=== PATIENT | male | born 1950 | race Caucasian/White ===

== ENCOUNTER → 2018-08-10 10:02 | Outpatient (CLI) | payer OTHER, MEDICARE, SELFPAY ==
--- NOTE | 2018-08-10 | DI.RAD.S_ITS ---
PROCEDURE: FL GUIDED PICC PLACEMENT INDICATIONS: TUBULO-INTERSTITIAL NEPHRITIS COMPARISON: None. FINDINGS: PICC was placed by the intravenous therapy team from the left side. Fluoroscopic spot film demonstrates tip of PICC in the SVC. IMPRESSION: Tip of PICC lies within the SVC. Dictated by: Juan Cronin M.D. on 08/10/2018 at 12:26 Approved by: Juan Cronin M.D. on 08/10/2018 at 12:27
== END ==
PROVIDERS: PCP Internal Medicine; Visit Provider Internal Medicine
DX: Z45.2 Encounter for adjustment and management of vascular access device (principal); N12 Tubulo-interstitial nephritis, not specified as acute or chronic
CPT/HCPCS: 36573

== ENCOUNTER → 2022-07-12 12:38 | Outpatient (CLI) | payer MEDICARE, OTHER, SELFPAY ==
--- NOTE | 2022-07-12 12:46 | DI.RAD.S_ITS ---
PROCEDURE: FL BARIUM SWALLOW INDICATIONS: OTHER DYSPHAGIA COMPARISON: None. FINDINGS: Function: There is weekend esophageal peristalsis, resulting in tertiary contractions and stasis of contrast. No elicited gastroesophageal reflux. The barium tablet did not pass through the GE junction. Morphology: Air-contrast images demonstrate normal mucosal morphology. Single contrast views show no esophageal strictures, extrinsic mass effects, or diverticula. Limited images of the stomach demonstrate normal appearance. IMPRESSION: Moderate esophageal dysmotility, with tertiary contractions. Dictated by: Chris Corona M.D. on 07/12/2022 at 16:23 Approved by: Chris Corona M.D. on 07/12/2022 at 16:24
== END ==
PROVIDERS: PCP Student in an Organized Health Care Education/Training Program; Referring Provider Student in an Organized Health Care Education/Training Program; Visit Provider Student in an Organized Health Care Education/Training Program
DX: R13.19 Other dysphagia (principal); K22.4 Dyskinesia of esophagus; R63.4 Abnormal weight loss; E11.42 Type 2 diabetes mellitus with diabetic polyneuropathy; D72.829 Elevated white blood cell count, unspecified; M48.02 Spinal stenosis, cervical region
CPT/HCPCS: 74220

== ENCOUNTER 2024-04-04 14:23 | Inpatient (IN) | payer MEDICARE, OTHER, SELFPAY ==
[2024-04-04] VITALS (26 sets, daily range): BP systolic 151–201; BP diastolic 61–140; PULSE 80–111; RESP 14–30; TEMP 36.1–36.7; O2SAT 94–99; BMI 19.7
--- NOTE | 2024-04-04 14:37 | DI.CT.S_ITS ---
PROCEDURE: CT STROKE INDICATIONS: code stroke TECHNIQUE: Noncontrast 4.5 mm thick angled axial sections acquired from the foramen magnum to the vertex, with coronal reformats. For radiation dose reduction, the following was used: automated exposure control, adjustment of mA and/or kV according to patient size. COMPARISON: None. FINDINGS: Image quality: Diagnostic. CSF spaces: Basal cisterns are patent. No extra-axial fluid collections. The ventricles are symmetric in size and shape. Brain: No intracranial bleeds or masses. There is cerebral volume loss for age, with resultant ventricular and sulcal prominence. There are moderate to severe periventricular and deep white matter chronic small vessel ischemic changes. There is intracranial internal carotid artery atherosclerosis. Skull and face: Calvarium and visualized facial bones appear intact, without suspicious lesions. Sinuses: Visualized sinuses and mastoids are clear. IMPRESSION: No acute intracranial pathology. Comment: Findings were discussed with Dr. Chacon on 04/04/2024 at 1454 hours This study fulfills neurological imaging criteria for inclusion or exclusion of acute stroke therapies based on available published neurological guidelines. Dictated by: Kiran Velez M.D. on 04/04/2024 at 14:52 Approved by: Kiran Velez M.D. on 04/04/2024 at 14:55
--- NOTE | 2024-04-04 14:37 | DI.CT.S_ITS ---
PROCEDURE: CT ANGIO HEAD AND NECK INDICATIONS: code stroke TECHNIQUE: After the administration of intravenous contrast, 1 mm thick sections acquired from the aortic arch through the [place] of [place]. 3-dimensional ezpigxm-inlnfhfzi-huissnkywd (MIP) and/or volume rendering reformats were acquired of the central intracranial vasculature and neck separately. For radiation dose reduction, the following was used: automated exposure control, adjustment of mA and/or kV according to patient size. COMPARISON: [facility], CT, CT STROKE, 04/04/2024, 14:42. FINDINGS: Image quality: Diagnostic. BRAIN: CSF spaces: Ventricles are normal in size and shape. Basal cisterns are patent. No extra-axial fluid collections. Brain: No significant abnormality of the brain can be seen. Skull and face: Calvarium and facial bones appear intact, without suspicious lesions. Orbits appear normal. Sinuses: Sinuses and mastoids are clear. HEAD CT ANGIOGRAPHY: Anterior circulation: Intracranial internal carotid arteries are normal in size and flow. The flow within the paired anterior cerebral arteries is normal and symmetric. The flow within the middle cerebral arteries is normal and symmetric. The anterior communicating artery is seen. No aneurysms are seen. Posterior circulation: Visualized portions of the vertebral arteries demonstrate normal caliber, and join to form a normal appearing basilar artery. Flow within the posterior cerebral arteries is normal and symmetric. No aneurysms are seen. NECK CT ANGIOGRAPHY: Carotid system: The great vessels demonstrate a conventional anatomy as they arise from the aortic arch. The origins of the common carotid arteries appear patent. The common carotid arteries demonstrate normal caliber and courses. The bifurcation regions are both widely patent. The internal carotid arteries demonstrate mild bilateral less than 50% proximal internal carotid artery stenosis. Posterior circulation: The origins of the vertebral arteries both appear widely patent. The more superior extracranial portions of both vertebral arteries also demonstrate normal courses and calibers. They join to form a normal appearing basilar artery. Soft tissues: Visualized neck soft tissues demonstrate no suspicious abnormalities. Bones: No suspicious bony lesions. Visualized cervical spine appears normally aligned. Previous multilevel cervical laminectomy and posterior lateral jenn and pedicle screw fixation. IMPRESSION: No significant intracranial arterial abnormality is seen. Mild bilateral, less than 50% internal carotid artery stenosis. Any quantitative measurements of stenosis were performed using NASCET criteria. Dictated by: Kiran Velez M.D. on 04/04/2024 at 15:59 Approved by: Kiran Velez M.D. on 04/04/2024 at 16:02
--- NOTE | 2024-04-04 14:43 | ED_ITS ---
HPI - Neuro Symptoms/Deficit General Chief Complaint: Neuro Symptoms/Deficit Stated Complaint: PER might be having a stroke unsure Time Seen by Provider: 04/04/24 14:40 Source: patient, RN notes reviewed and old records reviewed Mode of arrival: Ambulatory Limitations: no limitations History of Present Illness HPI Narrative: 73-year-old male history of seizure disorder chronic urinary retention, diabetes, dyslipidemia Keppra 250 mg p.o. b.i.d. who presents with complaint of sudden alteration in mental status. Patient has been at the urologist had his catheter removed to get good urine sample he has had it in place for 2 aunts. states they did not have him urinate before he left but did give a urinary straight cath to use if he was not able to urinate. 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 No fevers no chest pain no shortness of breath no nausea or vomiting no loss of bowel or bladder control. She describes that he was able to ambulate but seemed to drift a little bit off to the side. Patient when he had his seizures would sort of flail around and then becomes sort of comatose she states it took about 3 days to be diagnosed with seizures in the they get treated him with anti seizure medication and he improved within 12-24 hours. He is currently on fluconazole, tamsulosin, metformin, allopurinol, atorvastatin and Keppra daily as well as an aspirin 81 mg. He has not allergy to topical medications. Tobacco, alcohol or recreational drugs. On Anticoagulants: No Related Data Home Medications Medication Instructions Recorded Confirmed allopurinol 300 mg tablet 300 mg PO DAILY 05/30/19 05/30/19 aspirin 81 mg tablet,delayed 81 mg PO DAILY 05/30/19 05/30/19 release (Adult Low Dose Aspirin) famotidine 20 mg tablet 20 mg PO DAILY 05/30/19 05/30/19 finasteride 5 mg tablet 5 mg PO DAILY 05/30/19 05/30/19 losartan 100 mg tablet 100 mg PO DAILY 05/30/19 05/30/19 metformin 1,000 mg tablet 1,000 mg PO DAILY 05/30/19 05/30/19 multivitamin 1 cap PO DAILY 05/30/19 05/30/19 simvastatin 20 mg tablet 20 mg PO DAILY 05/30/19 05/30/19 tamsulosin 0.4 mg capsule 0.4 mg PO DAILY 05/30/19 05/30/19 Allergies Allergy/AdvReac Type Severity Reaction Status Date / Time aloe vera Allergy rash Verified 04/04/24 14:41 bacitracin Allergy rash Verified 04/04/24 14:41 hydrocortisone Allergy rash Verified 04/04/24 14:41 neomycin Allergy Verified 04/04/24 14:41 Review of Systems Review of Systems ROS Unobtainable: All systems reviewed & are unremarkable except as noted in HPI and below Hematologic/Lymphatic On Anticoagulants: No Patient History Family History Family/Other Hypertension Heart disease Father Hypertension Heart disease Mother Dementia Family/Other Loud snoring Hypertension Heart disease Social History Smoking Status: Former smoker Smoking Status: Former smoker Exam Narrative Exam Narrative: GEN: well nourished, well appearing male, alert, oriented to self, patient appears to be in moderate distress. Patient does not follow commands well. HEENT: Atraumatic, pupils are equal round reactive to light, extraocular movements are intact, nares are clear, TMs are clear with no fluid, there is no conjunctival pallor. Throat is clear without any exudates, erythema, tonsillar enlargement or uvular deviation, no facial droop HEART: Regular rate and rhythm without murmur, clicks, rubs. Pulses are equal in upper and lower extremities LUNGS:Lungs clear to auscultation, no wheezes, rales, crackles, chest moves symmetrically ABD:bowel sounds normal, soft, non-tender, no guarding, rebound, rigidity, no masses noted, no hepatosplenomegaly :No CVA tenderness MSCL: Non-tender, no muscle atrophy, muscles strength 5/5 upper and lower extremities, full range of motion. NEURO:CN 2-12 intact, sensation normal, finger nose finger test normal, heel da silva test normal. Initial Vital Signs Initial Vital Signs: Vital Signs Temperature 98.1 F 04/04/24 14:25 Pulse Rate 98 H 04/04/24 14:25 Respiratory Rate 18 04/04/24 14:25 Blood Pressure 172/84 H 04/04/24 14:25 Pulse Oximetry 99 04/04/24 14:25 Oxygen Delivery Method Room Air 04/04/24 14:25 Scores NIH Stroke Scale Level of Conciousness: Alert, keenly responsive Ask month/age: Answers both questions correctly. Open/close eyes, close hand: Performs one task correctly Best gaze horizontal: Normal Visual nguyễn: No visual loss Facial palsy: Normal symetrical movement Left arm drift: No drift for full 10 sec Right arm drift: No drift for full 10 sec Left leg drift: No drift for full 5 sec Right leg drift: No drift for full 5 sec Limb ataxia: Absent Sensory on face/arms/legs: Normal, no sensory loss Best language: Severe aphasia, not much is understood, fragmented Dysarthria: Normal Extinction or inattention: No abnormality Total NIH Stroke scale score: 3 Course Orders Ordered: ED Orders 04/04/24 14:30 Ammonia (NH3) Stat 04/04/24 14:36 CMP [Comprehensive Metabolic Panel] Stat Complete Blood Count AUTO DIFF Stat Ethanol (ETOH) Stat PTT Partial Thromboplastin Brayan Stat Prothrombin Time INR Stat 04/04/24 14:[address] angio head and neck Stat EKG-12 Lead Stat 04/04/24 15:00 UA Complete [Urinalysis and Microscopic] Stat Urine Culture Stat Urine Drug Screen, Rapid Stat 04/04/24 15:05 COVID19 -Nasal RAPID Stat 04/04/24 16:23 MR head/brain wo con Stat 04/04/24 18:45 Prolactin Stat Discontinued Medications Aspirin (Aspirin 81 Mg Chew Tab) 324 mg PO NOW ONE Stop: 04/04/24 17:48 Last Admin: 04/04/24 17:58 Dose: 324 mg Documented By: YI Levetiracetam 1,000 mg/ Sodium (Chloride) 110 mls @ 440 mls/hr IV NOW ONE Stop: 04/04/24 15:20 Last Infusion: 04/04/24 16:35 Dose: Infused Documented By: Admin: 04/04/24 16:15 Dose: 440 mls/hr Documented By: YI Ceftriaxone Sodium 1,000 mg/ (Sodium Chloride) 100 mls @ 200 mls/hr IV NOW ONE Stop: 04/04/24 16:24 Last Infusion: 04/04/24 18:08 Dose: Infused Documented By: Admin: 04/04/24 17:24 Dose: 200 mls/hr Documented By: YI Vital Signs Vital signs: Vital Signs - 8 hr 04/04/24 14:25 04/04/24 14:50 04/04/24 15:00 Temperature 98.1 F Pulse Rate 98 H 88 84 Respiratory Rate 18 17 18 Blood Pressure 172/84 H Pulse Oximetry 99 98 97 Oxygen Delivery Method Room Air 04/04/24 15:00 04/04/24 15:11 04/04/24 15:11 Temperature Pulse Rate 81 Respiratory Rate 24 Blood Pressure 193/101 H 176/109 H Pulse Oximetry Oxygen Delivery Method 04/04/24 15:20 04/04/24 15:20 04/04/24 15:30 Temperature Pulse Rate 80 81 Respiratory Rate 22 22 Blood Pressure 189/93 H Pulse Oximetry 97 97 Oxygen Delivery Method 04/04/24 16:00 04/04/24 16:19 04/04/24 16:19 Temperature Pulse Rate 85 94 H Respiratory Rate 30 H 24 Blood Pressure 185/98 H Pulse Oximetry 98 Oxygen Delivery Method 04/04/24 16:20 04/04/24 16:20 04/04/24 16:30 Temperature Pulse Rate 94 H 111 H Respiratory Rate 24 26 H Blood Pressure 177/100 H Pulse Oximetry 96 96 Oxygen Delivery Method 04/04/24 16:31 04/04/24 16:31 04/04/24 16:40 Temperature Pulse Rate 103 H Respiratory Rate 22 Blood Pressure 180/140 H 188/97 H Pulse Oximetry 96 Oxygen Delivery Method 04/04/24 16:40 04/04/24 16:50 04/04/24 16:50 Temperature Pulse Rate 93 H 95 H Respiratory Rate 17 17 Blood Pressure 201/94 H Pulse Oximetry 96 96 Oxygen Delivery Method 04/04/24 17:31 04/04/24 17:34 04/04/24 17:34 Temperature Pulse Rate 100 H 100 H Respiratory Rate 14 Blood Pressure 161/72 H Pulse Oximetry 97 Oxygen Delivery Method 04/04/24 17:40 04/04/24 17:40 04/04/24 17:53 Temperature Pulse Rate 101 H 96 H Respiratory Rate 22 23 Blood Pressure 156/71 H Pulse Oximetry 95 96 Oxygen Delivery Method 04/04/24 17:53 04/04/24 18:00 04/04/24 18:01 Temperature Pulse Rate 99 H Respiratory Rate 22 Blood Pressure 157/79 H 164/85 H Pulse Oximetry 96 Oxygen Delivery Method 04/04/24 18:01 Temperature Pulse Rate 96 H Respiratory Rate 20 Blood Pressure Pulse Oximetry 97 Oxygen Delivery Method MDM - Neuro Symptoms/Deficit Lab Data 04/04/24 14:36 04/04/24 14:36 Labs: Lab Results 04/04/24 04/04/24 04/04/24 Range/Units 14:30 14:36 15:00 WBC 11.8 H (4.5-11.0) X10^3/uL RBC 3.80 L (4.5-5.9) X10^6/uL Hgb 12.1 L (13.5-17.5) g/dL Hct 36.5 L (41-53) % MCV 96.2 (80-100) fL MCH 31.8 (26-34) PG MCHC 33.1 (30-36) % RDW 14.5 (11.6-14.8) % Plt Count 216 (150-400) X10^3/uL Neut % (Auto) 65.2 (50-75) % Lymph % (Auto) 25.4 (25-40) % [place] % (Auto) 6.1 (3-14) % Eos % (Auto) 3.0 (2-4) % Baso % (Auto) 0.3 (0-2) % Neut # (Auto) 7700 H (2095-1058) /uL Lymph # (Auto) 3000 (7143-9243) /uL [place] # (Auto) 700 (0-900) /uL Eos # (Auto) 400 (0-450) /uL Baso # (Auto) 0 (0-100) /uL PT 11.0 (9.4-12.5) SECONDS INR 1.0 (0.9-1.3) APTT 37 H (25.1-36.5) SECONDS Sodium 139 (137-145) mmol/L Potassium 4.7 (3.4-5.1) mmol/L Chloride 100 (98-107) mmol/L Carbon Dioxide 31 (22-32) mmol/L BUN 20 (9-20) mg/dL Creatinine 1.11 (0.66-1.25) mg/dL Estimated GFR > 60 (>60) mL/min BUN/Creatinine Ratio 18.0 (6-22) Glucose 137 H (80-110) mg/dL Calcium 9.6 (8.4-10.2) mg/dL Total Bilirubin 0.5 (0.2-1.3) mg/dL AST 40 (17-59) IU/L ALT 26 (<50) IU/L Alkaline Phosphatase 105 (38-126) U/L Ammonia < 9 L (9-30) umol/L Total Protein 8.2 (6.3-8.2) g/dL Albumin 4.5 (3.5-5.0) g/dL Globulin 3.7 (1.7-4.1) g/dL Albumin/Globulin Ratio 1.2 (1.0-2.8) Urine Color Yellow Urine Appearance Clear Urine pH 7.0 (4.5-8.0) Ur Specific [place] 1.015 (1.000-1.035) Urine Protein Trace H (Negative) Urine Glucose (UA) Negative (Negative) g/dL Urine Ketones Negative (NEGATIVE) Urine Occult Blood Negative (Negative) Urine Nitrate Negative (Negative) Urine Bilirubin Negative (NEGATIVE) Urine Urobilinogen 0.2 (0.2) E.U./dL Ur Leukocyte Esterase 1+ H (NEGATIVE) Urine RBC 5-10/hpf H (0-5/HPF) Urine WBC 5-10/hpf H (0-5/HPF) Ur Squamous Epith Cells 1-5 /hpf (0-5/HPF) Urine Bacteria Moderate (10-30) H (None) Ur Culture Indicated? Specimen cultured Vol Urine Centrifuged 10ml (spun) U Opiates 300ng/mL cut Negative (Negative) Ur Oxycodone Screen Negative (Negative) Urine Methadone Screen Negative (Negative) Ur Barbiturates Screen Negative (Negative) U Tricyclic Antidepress Negative (Negative) Ur Phencyclidine Scrn Negative (Negative) Ur Amphetamines Screen Negative (Negative) U Methamphetamines Scrn Negative (Negative) Ur MDMA Scrn (Ecstasy) Negative (Negative) U Benzodiazepines Scrn Negative (Negative) Urine Cocaine Screen Negative (Negative) U Marijuana (THC) Screen Negative (Negative) Urine Specific [place] (Normal) Ethyl Alcohol < 10 ( - 10) mg/dL Ur Creatinine (Normal) SARS-CoV-2 (PCR) (Negative) 04/04/24 04/04/24 Range/Units 15:00 15:05 WBC (4.5-11.0) X10^3/uL RBC (4.5-5.9) X10^6/uL Hgb (13.5-17.5) g/dL Hct (41-53) % MCV (80-100) fL MCH (26-34) PG MCHC (30-36) % RDW (11.6-14.8) % Plt Count (150-400) X10^3/uL Neut % (Auto) (50-75) % Lymph % (Auto) (25-40) % [place] % (Auto) (3-14) % Eos % (Auto) (2-4) % Baso % (Auto) (0-2) % Neut # (Auto) (7595-3848) /uL Lymph # (Auto) (6702-4226) /uL [place] # (Auto) (0-900) /uL Eos # (Auto) (0-450) /uL Baso # (Auto) (0-100) /uL PT (9.4-12.5) SECONDS INR (0.9-1.3) APTT (25.1-36.5) SECONDS Sodium (137-145) mmol/L Potassium (3.4-5.1) mmol/L Chloride (98-107) mmol/L Carbon Dioxide (22-32) mmol/L BUN (9-20) mg/dL Creatinine (0.66-1.25) mg/dL Estimated GFR (>60) mL/min BUN/Creatinine Ratio (6-22) Glucose (80-110) mg/dL Calcium (8.4-10.2) mg/dL Total Bilirubin (0.2-1.3) mg/dL AST (17-59) IU/L ALT (<50) IU/L Alkaline Phosphatase (38-126) U/L Ammonia (9-30) umol/L Total Protein (6.3-8.2) g/dL Albumin (3.5-5.0) g/dL Globulin (1.7-4.1) g/dL Albumin/Globulin Ratio (1.0-2.8) Urine Color Urine Appearance Urine pH Normal (4.5-8.0) Ur Specific [place] (1.000-1.035) Urine Protein (Negative) Urine Glucose (UA) (Negative) g/dL Urine Ketones (NEGATIVE) Urine Occult Blood (Negative) Urine Nitrate (Negative) Urine Bilirubin (NEGATIVE) Urine Urobilinogen (0.2) E.U./dL Ur Leukocyte Esterase (NEGATIVE) Urine RBC (0-5/HPF) Urine WBC (0-5/HPF) Ur Squamous Epith Cells (0-5/HPF) Urine Bacteria (None) Ur Culture Indicated? Vol Urine Centrifuged U Opiates 300ng/mL cut (Negative) Ur Oxycodone Screen (Negative) Urine Methadone Screen (Negative) Ur Barbiturates Screen (Negative) U Tricyclic Antidepress (Negative) Ur Phencyclidine Scrn (Negative) Ur Amphetamines Screen (Negative) U Methamphetamines Scrn (Negative) Ur MDMA Scrn (Ecstasy) (Negative) U Benzodiazepines Scrn (Negative) Urine Cocaine Screen (Negative) U Marijuana (THC) Screen (Negative) Urine Specific [place] Normal (Normal) Ethyl Alcohol ( - 10) mg/dL Ur Creatinine Normal (Normal) SARS-CoV-2 (PCR) Negative (Negative) Point of Care Testing Glucose POC 147 Imaging Data CTA - brain/neck: Radiologist's Impression: [place] [address] CT Scan Report Signed Patient: Spencer Burton MR#: [id number] : 1950 Acct:[id number] Age/Sex: 73 / M Date of Service: 04/04/24 Loc: ED Accession Number: [id number] Procedure: CT angio head and neck Ordering Provider: Jie Chacon D.O. PROCEDURE: CT ANGIO HEAD AND NECK INDICATIONS: code stroke TECHNIQUE: After the administration of intravenous contrast, 1 mm thick sections acquired from the aortic arch through the [place] of [place]. 3-dimensional reaicbh-uojmrabwg-lqjrfsvfcy (MIP) and/or volume rendering reformats were acquired of the central intracranial vasculature and neck separately. For radiation dose reduction, the following was used: automated exposure control, adjustment of mA and/or kV according to patient size. COMPARISON: [facility], CT, CT STROKE, 04/04/2024, 14:42. FINDINGS: Image quality: Diagnostic. BRAIN: CSF spaces: Ventricles are normal in size and shape. Basal cisterns are patent. No extra-axial fluid collections. Brain: No significant abnormality of the brain can be seen. Skull and face: Calvarium and facial bones appear intact, without suspicious lesions. Orbits appear normal. Sinuses: Sinuses and mastoids are clear. HEAD CT ANGIOGRAPHY: Anterior circulation: Intracranial internal carotid arteries are normal in size and flow. The flow within the paired anterior cerebral arteries is normal and symmetric. The flow within the middle cerebral arteries is normal and symmetric. The anterior communicating artery is seen. No aneurysms are seen. Posterior circulation: Visualized portions of the vertebral arteries demonstrate normal caliber, and join to form a normal appearing basilar artery. Flow within the posterior cerebral arteries is normal and symmetric. No aneurysms are seen. NECK CT ANGIOGRAPHY: Carotid system: The great vessels demonstrate a conventional anatomy as they arise from the aortic arch. The origins of the common carotid arteries appear patent. The common carotid arteries demonstrate normal caliber and courses. The bifurcation regions are both widely patent. The internal carotid arteries demonstrate mild bilateral less than 50% proximal internal carotid artery stenosis. Posterior circulation: The origins of the vertebral arteries both appear widely patent. The more superior extracranial portions of both vertebral arteries also demonstrate normal courses and calibers. They join to form a normal appearing basilar artery. Soft tissues: Visualized neck soft tissues demonstrate no suspicious abnormalities. Bones: No suspicious bony lesions. Visualized cervical spine appears normally aligned. Previous multilevel cervical laminectomy and posterior lateral jenn and pedicle screw fixation. IMPRESSION: No significant intracranial arterial abnormality is seen. Mild bilateral, less than 50% internal carotid artery stenosis. Any quantitative measurements of stenosis were performed using NASCET criteria. Dictated by: Kiran Velez M.D. on 04/04/2024 at 15:59 Approved by: Kiran Velez M.D. on 04/04/2024 at 16:02 CT scan - head: Radiologist's Impression: [address] [address] [address] Scan Report Signed Patient: Spencer Burton MR#: [id number] : 1950 Acct:[id number] Age/Sex: 73 / M Date of Service: 04/04/24 Loc: ED Accession Number: [id number] Procedure: CT Stroke Ordering Provider: Jie Chacon D.O. PROCEDURE: CT STROKE INDICATIONS: code stroke TECHNIQUE: Noncontrast 4.5 mm thick angled axial sections acquired from the foramen magnum to the vertex, with coronal reformats. For radiation dose reduction, the following was used: automated exposure control, adjustment of mA and/or kV according to patient size. COMPARISON: None. FINDINGS: Image quality: Diagnostic. CSF spaces: Basal cisterns are patent. No extra-axial fluid collections. The ventricles are symmetric in size and shape. Brain: No intracranial bleeds or masses. There is cerebral volume loss for age, with resultant ventricular and sulcal prominence. There are moderate to severe periventricular and deep white matter chronic small vessel ischemic changes. There is intracranial internal carotid artery atherosclerosis. Skull and face: Calvarium and visualized facial bones appear intact, without suspicious lesions. Sinuses: Visualized sinuses and mastoids are clear. IMPRESSION: No acute intracranial pathology. Comment: Findings were discussed with Dr. Chacon on 04/04/2024 at 1454 hours This study fulfills neurological imaging criteria for inclusion or exclusion of acute stroke therapies based on available published neurological guidelines. Dictated by: Kiran Velez M.D. on 04/04/2024 at 14:52 Approved by: Kiran eVlez M.D. on 04/04/2024 at 14:55 MR brain: Radiologist's Impression: Diagnostics Reports Spencer Burton??73??M??1950 ? Allergy/Adv: aloe vera, bacitracin, hydrocortisone, neomycin (More??) Close Brain MRI (Signed) Arabella Ramires - 04/04/24 Head/Neck CTA (Signed) Kiran Velez - 04/04/[address] (Signed) Kiran Velez - 04/04/24 Barium Swallow X-Ray (Signed) Chris Corona - 07/12/22 PICC Line Insertion (Signed) Juan Cronin - 08/10/18 Launch?[place] [address] Magnetic Resonance Report Signed Patient: Spencer Burton MR#: [id number] : 1950 Acct:[id number] Age/Sex: 73 / M Date of Service: 04/04/24 Loc: ED Accession Number: [id number] Procedure: MR head/brain wo con Ordering Provider: Jie Chacon D.O. PROCEDURE: MR HEAD/BRAIN WO CON INDICATIONS: confusion/aphasia TECHNIQUE: Non-contrast axial T1 spin echo, axial T2 fast spin echo, sagittal and axial FLAIR, coronal T2 fast spin echo, axial gradient echo, axial diffusion and ADC through the brain. COMPARISON: None. FINDINGS: Image quality: Decreased due to motion artifact. CSF spaces: Ventricles appear symmetric in size and shape. Basal cisterns are patent. No extra-axial fluid collections. Brain: No intracranial bleeds or mass effects. There is moderate cerebral volume loss for age. There are moderate periventricular and deep white matter chronic small vessel ischemic changes. Brainstem appears normal. Diffusion-weighted images show no acute infarct. No chronic ischemic insults. Normal intravascular flow voids are present. Skull and face: Calvarial bone marrow is normal in signal. Orbits are normal. Sinuses: Sinuses and mastoids are clear. IMPRESSION: Periventricular and subcortical T2 and FLAIR hyperintensity, nonspecific, but most likely due to chronic microvascular ischemia and age-related factors. No evidence of acute or chronic cortical infarct. Dictated by: Arabella Ramires M.D. on 04/04/2024 at 17:58 Approved by: Arabella Ramires M.D. on 04/04/2024 at 18:01 ECG Data Attestation: I personally reviewed and interpreted this ECG as follows: Prior ECG tracings: not available for review Interpretation: Sinus rhythm premature atrial complexes rate 84 PA 156 QRS 84 QTC 451, no acute ST changes appreciated. No priors for comparison. [facility] Narrative Medical decision making narrative: 73-year-old male with sudden onset of expressive aphasia and confusion patient confused he can tell me his name he is trouble giving me much other history. Does have a history of seizure disorder described flailing around in the going comatose this was back in January did not have any movement changes or loss of consciousness no incontinence at any point did have a urinary catheter removed and noticed a little bit of change during that she thinks this started about 1:30 p.m. was with him returning from urology appointment has not had any improvement. She states he was able to ambulate but sort of listed off to the side. He is on an aspirin daily no other current anticoagulation. Has also had a TIA in the past. Patient is in the timeframe for tnk but has somewhat atypical history. Initial glucose is in the 140s. Difficult to obtain patient's NIH initially upon arrival as patient can not follow commands but unable to follow commands for ayduma-rmnx-botzaz or heel-da silva or evaluate speech with cars but patient does not appear to have some expressive aphasia but also confusion and no clear lateralizing symptoms. Labs show white count 11.8 hemoglobin of 12 platelets of 216. Coags are negative electrolytes are normal BUN 20 creatinine is 1.11 glucose is 137 LFTs are negative calcium is 9.6. UA shows trace protein 1+ leuks 5-10 RBCs 5-10 WBCs 1 5 squamous moderate bacteria specimen was sent culture. Shows potential for infection patient has had alterations in mental status with UTIs in the past so was given a dose of Rocephin. UDS is negative. ETOH is negative. COVID swab is negative Non-con head CT is negative for acute change CTA head and neck shows no acute significant intracranial arterial abnormalities mild bilateral less than 50% internal carotid artery stenosis. MR brain shows periventricular subcortical T2 and FLAIR hyperintensity nonspecific but most likely due to chronic microvascular ischemic and age- related fractures no acute evidence of acute or chronic cortical infarct. 1515 Consultation with tele stroke/[facility], Spoke with Dr. Clayton plan for video evaluation. We will also load with Keppra though does not appear to be seizure- like activity at this time. 1600 On rechecked patient has symptoms have improved he still has a pretty dense expressive aphasia but can follow commands much better at this time. NIH at this time 3. 1606: CTA resulted reviewed with Neurology. Talking with lab there was delay in labs. 1630: Patient was elevated by neurologist at bedside with the tele monitor. After a long discussion and patient's sort of atypical presentation was felt to hold TNK although there was discussion that is stroke is still on the differential risks versus benefit were discussed and it was not initiated. I also discussed with the patient's family and at bedside so they understand be outside the window after 6pm and will likely not have MR results by then. They express understanding. Patient does still have some expressive aphasia but it has definitely had some improvement in mentation that can follow commands and performed with the rest of his NIH. states he also seems to be improving as well. Patient received aspirin, Rocephin and Keppra. 1830: Patient has had continued improvement in department. Is having some urinary incontinence we will bladder scan to make sure he was not retaining as he had his catheter removed today. Hospitalist Dr. Luther: Asked to add on prolactin. Accepts for inpatient stay as patient had fluoroquinolone resistance Pseudomonas on prior urine cultures ask that we add cefepime which it was sensitive to. Does ask if we can let the night hospitalist know if they are retaining. Patient is 205 postvoid. Discharge Plan Departure Patient Disposition: Admitted As Inpatient Clinical Impression: UTI (urinary tract infection), Expressive aphasia
[2024-04-04 14:50] LABS: Add Manual Diff / Slide Review NO; Basophils Absolute Auto 0 /uL (0-100); Basophils Percent Auto 0.3 % (0-2); Eosinophils Absolute Auto 400 /uL (0-450); Hematocrit 36.5 % (41-53); Hemoglobin 12.1 g/dL (13.5-17.5); Lymphocytes Absolute Auto 3000 /uL (1100-4500); Lymphocytes Percent Auto 25.4 % (25-40); Mean Corpuscular HGB Conc 33.1 % (30-36); Mean Corpuscular Hemoglobin 31.8 PG (26-34); Mean Corpuscular Volume 96.2 fL (80-100); Monocytes Absolute Auto 700 /uL (0-900); Monocytes Percent Auto 6.1 % (3-14); Neutrophils Absolute Auto 7700 /uL (1500-7000); Neutrophils Percent Auto 65.2 % (50-75); Platelet Count 216 X10^3/uL (150-400); Red Cell Distribution Width 14.5 % (11.6-14.8); White Blood Cell Count 11.8 X10^3/uL (4.5-11.0)
--- NOTE | 2024-04-04 15:04 | EKG_ITS ---
[address] [address] Test Date: 2024-04-04 Pat Name: Spencer Burton Department: [facility] Room: Gender: Male Reading Instructor: PRISCILLA : 1950 Requested By: Order Number: [id number] Reading MD: True Barlow MD Measurements Intervals [place] Rate: 84 P: 53 CA: 156 QRS: -11 QRSD: 84 T: 38 QT: 382 QTc: 451 Interpretive Statements Sinus rhythm with premature atrial complexes Electronically Signed On 04-04-2024 16:25:40 PST by True Barlow MD
[2024-04-04 15:09] LABS: Appearance Urine UA CLEAR; Bilirubin Urine UA NEGATIVE (NEGATIVE); Color Urine UA YELLOW; Glucose Urine UA NEGATIVE (Negative); Ketones Urine UA NEGATIVE (NEGATIVE); Leukocyte Esterase Urine UA 1+ (NEGATIVE); Nitrite Urine UA NEGATIVE (Negative); Occult Blood Urine UA NEGATIVE (Negative); Protein Urine UA TRACE (Negative); Specific Gravity Urine UA 1.015 (1.000-1.035); Urobilinogen Urine UA 0.2 E.U./dL (0.2)
[2024-04-04 15:10] LABS: PTT Partial Thromboplastin Tim 37 SECONDS (25.1-36.5)
[2024-04-04 15:26] LABS: COVID19 -Nasal RAPID Negative (Negative)
[2024-04-04 15:33] LABS: Ethanol (ETOH) < 10 mg/dL
[2024-04-04 15:33] LABS: Ammonia (NH3) < 9 umol/L (9-30)
[2024-04-04 15:48] LABS: RBC Urine 5-10/HPF (0-5/HPF); Urine Volume 10mL (spun); WBC Urine 5-10/HPF (0-5/HPF)
[2024-04-04 15:49] LABS: Bacteria Urine Moderate (10-30); Culture Indicated Urine Specimen Cultured; Squamous Epithelial Cell Urine 1-5 /HPF (0-5/HPF); Ur Creatinine Normal (Normal); Ur Specific Gravity Normal (Normal); Urine Amphetamines Negative (Negative); Urine Barbiturates Negative (Negative); Urine Benzodiazepines Negative (Negative); Urine Cocaine Negative (Negative); Urine MDMA Negative (Negative); Urine Methadone Negative (Negative); Urine Methamphetamines Negative (Negative); Urine Opiates Negative (Negative); Urine Oxycodone Negative (Negative); Urine Phencyclidine Negative (Negative); Urine THC Negative (Negative); Urine Tricyclic Antidepressant Negative (Negative); Urine pH Normal (Normal)
[2024-04-04] MEDS: levETIRAcetam 1,000 MG in SODIUM CHLORIDE 0.9% 100 ML 440 MG IV (16:15)
[2024-04-04 16:19] LABS: Alanine Aminotransferase 26 IU/L (<50); Albumin 4.5 g/dL (3.5-5.0); Albumin Globulin Ratio 1.2 (1.0-2.8); Alkaline Phosphatase 105 U/L (38-126); Aspartate Aminotransferase 40 IU/L (17-59); Bilirubin Total 0.5 mg/dL (0.2-1.3); Blood Urea Nitrogen 20 mg/dL (9-20); Calcium 9.6 mg/dL (8.4-10.2); Carbon Dioxide 31 mmol/L (22-32); Chloride 100 mmol/L (98-107); Estimated Glomerular Filt Rate > 60 mL/min (>60); Globulin 3.7 g/dL (1.7-4.1); Glucose 137 mg/dL (80-110); HEMOLYSIS 23 (0-50); Potassium 4.7 mmol/L (3.4-5.1); Sodium 139 mmol/L (137-145); Total Protein 8.2 g/dL (6.3-8.2)
--- NOTE | 2024-04-04 16:23 | DI.MRI.S_ITS ---
PROCEDURE: MR HEAD/BRAIN WO CON INDICATIONS: confusion/aphasia TECHNIQUE: Non-contrast axial T1 spin echo, axial T2 fast spin echo, sagittal and axial FLAIR, coronal T2 fast spin echo, axial gradient echo, axial diffusion and ADC through the brain. COMPARISON: None. FINDINGS: Image quality: Decreased due to motion artifact. CSF spaces: Ventricles appear symmetric in size and shape. Basal cisterns are patent. No extra-axial fluid collections. Brain: No intracranial bleeds or mass effects. There is moderate cerebral volume loss for age. There are moderate periventricular and deep white matter chronic small vessel ischemic changes. Brainstem appears normal. Diffusion-weighted images show no acute infarct. No chronic ischemic insults. Normal intravascular flow voids are present. Skull and face: Calvarial bone marrow is normal in signal. Orbits are normal. Sinuses: Sinuses and mastoids are clear. IMPRESSION: Periventricular and subcortical T2 and FLAIR hyperintensity, nonspecific, but most likely due to chronic microvascular ischemia and age-related factors. No evidence of acute or chronic cortical infarct. Dictated by: Arabella Ramires M.D. on 04/04/2024 at 17:58 Approved by: Arabella Ramires M.D. on 04/04/2024 at 18:01
[2024-04-04] MEDS: cefTRIAXone 1,000 MG in SODIUM CHLORIDE 0.9% 100 ML 200 MG IV (17:24)
[2024-04-04] MEDS: ASPIRIN 81 MG CHEW TAB 324 MG PO (17:58)
--- NOTE | 2024-04-04 18:15 | PC.NURSE ---
Pt's reports that pt is improving, this RN noted a decrease in difficulty with word finding.
[2024-04-04] MEDS: CEFEPIME 2 GM in SODIUM CHLORIDE 0.9% 100 ML IV (19:01)
[2024-04-04 20:03] LABS: Prolactin 7.5 ng/mL (3.7-17.9)
[2024-04-04] MEDS: SODIUM CHLORIDE 0.9% FLUSH 10 ML IV (21:38)
--- NOTE | 2024-04-04 22:37 | PM.HP.1 ---
History of Present Illness History of Present Illness Date Patient Seen: 04/04/24 Time Patient Seen: 21:00 Chief complaint: PER might be having a stroke unsure Narrative: 73 y/o with PMH of BPH with LUTS, on Flomax and Finasteride and with Rodriguez until earlier today when he had it removed in urology clinic, sent to ED for confusion. Initially suspected for stroke that was ruled out. Diagnosed with recurrent UTI and metabolic encephalopathy. Not septic. Last UC grew pseudomonas resistant to fluoroquinolones and most recent abx prescribed by urology was Cipro. Admitted on Cefepime. PFSH Family History Family/Other Hypertension Heart disease Father Hypertension Heart disease Mother Dementia Family/Other Loud snoring Hypertension Heart disease Social History household members: spouse Smoking Status: Former smoker Meds Home Medications and Allergies Home Medications Medication Instructions Recorded Confirmed Type allopurinol 300 mg tablet 300 mg PO DAILY 05/30/19 04/04/24 History aspirin 81 mg tablet,delayed 81 mg PO DAILY 05/30/19 04/04/24 History release (Adult Low Dose Aspirin) finasteride 5 mg tablet 5 mg PO DAILY 05/30/19 04/04/24 History metformin 1,000 mg tablet 1,000 mg PO DAILY 05/30/19 04/04/24 History multivitamin 1 cap PO DAILY 05/30/19 04/04/24 History tamsulosin 0.4 mg capsule 0.4 mg PO DAILY 05/30/19 04/04/24 History B Complex-Vitamin B12 500 mcg PO 2XD 04/04/24 04/04/24 History atorvastatin 10 mg tablet 10 mg PO DAILY 04/04/24 04/04/24 History levetiracetam 250 mg tablet 250 mg PO 2XD 04/04/24 04/04/24 History magnesium oxide 250 mg PO BID 04/04/24 04/04/24 History Allergies Allergy/AdvReac Type Severity Reaction Status Date / Time aloe vera Allergy rash Verified 04/04/24 14:41 bacitracin Allergy rash Verified 04/04/24 14:41 hydrocortisone Allergy rash Verified 04/04/24 14:41 neomycin Allergy Verified 04/04/24 14:41 Review of Systems Review of Systems Narrative: Unobtainable due to encephalopathy Exam Vital Signs (past 8 hours): - 04/04/24 14:50 04/04/24 15:00 04/04/24 15:00 Pulse Rate 88 84 Respiratory Rate 17 18 Blood Pressure 193/101 H Pulse Oximetry 98 97 04/04/24 15:11 04/04/24 15:11 04/04/24 15:20 Pulse Rate 81 80 Respiratory Rate 24 22 Blood Pressure 176/109 H Pulse Oximetry 97 04/04/24 15:20 04/04/24 15:30 04/04/24 16:00 Pulse Rate 81 85 Respiratory Rate 22 30 H Blood Pressure 189/93 H Pulse Oximetry 97 04/04/24 16:19 04/04/24 16:19 04/04/24 16:20 Pulse Rate 94 H 94 H Respiratory Rate 24 24 Blood Pressure 185/98 H Pulse Oximetry 98 96 04/04/24 16:20 04/04/24 16:30 04/04/24 16:31 Pulse Rate 111 H 103 H Respiratory Rate 26 H 22 Blood Pressure 177/100 H Pulse Oximetry 96 96 04/04/24 16:31 04/04/24 16:40 04/04/24 16:40 Pulse Rate 93 H Respiratory Rate 17 Blood Pressure 180/140 H 188/97 H Pulse Oximetry 96 04/04/24 16:50 04/04/24 16:50 04/04/24 17:31 Pulse Rate 95 H 100 H Respiratory Rate 17 Blood Pressure 201/94 H Pulse Oximetry 96 04/04/24 17:34 04/04/24 17:34 04/04/24 17:40 Pulse Rate 100 H Respiratory Rate 14 Blood Pressure 161/72 H 156/71 H Pulse Oximetry 97 04/04/24 17:40 04/04/24 17:53 04/04/24 17:53 Pulse Rate 101 H 96 H Respiratory Rate 22 23 Blood Pressure 157/79 H Pulse Oximetry 95 96 04/04/24 18:00 04/04/24 18:01 04/04/24 18:01 Pulse Rate 99 H 96 H Respiratory Rate 22 20 Blood Pressure 164/85 H Pulse Oximetry 96 97 04/04/24 18:30 04/04/24 19:00 04/04/24 19:01 Pulse Rate 91 H 86 Respiratory Rate 19 24 Blood Pressure 156/85 H Pulse Oximetry 94 96 04/04/24 19:01 04/04/24 19:30 04/04/24 19:31 Pulse Rate 85 84 84 Respiratory Rate 16 24 21 Blood Pressure Pulse Oximetry 95 95 95 04/04/24 19:31 Pulse Rate Respiratory Rate Blood Pressure 152/72 H Pulse Oximetry Oxygen Delivery Method Room Air Const Other: in no distress, at bedside HENMT Other: atraumatic, normocephalic Eyes Other: eomi Neck Other: supple Resp Other: normal respiratory effort, CTA Cardio Other: RRR Neuro Other: w/o seizures Psych Other: encephalopathic Objective ECG Impression: NSR 84 w/o ischemic changes Labs 04/05/24 04:39 04/05/24 04:39 Labs: Laboratory Results - last 24 hr 04/04/24 04/04/24 04/04/24 14:30 14:36 15:00 WBC 11.8 H RBC 3.80 L Hgb 12.1 L Hct 36.5 L MCV 96.2 MCH 31.8 MCHC 33.1 RDW 14.5 Plt Count 216 Neut % (Auto) 65.2 Lymph % (Auto) 25.4 [place] % (Auto) 6.1 Eos % (Auto) 3.0 Baso % (Auto) 0.3 Neut # (Auto) 7700 H Lymph # (Auto) 3000 [place] # (Auto) 700 Eos # (Auto) 400 Baso # (Auto) 0 PT 11.0 INR 1.0 APTT 37 H Sodium 139 Potassium 4.7 Chloride 100 Carbon Dioxide 31 BUN 20 Creatinine 1.11 Estimated GFR > 60 BUN/Creatinine Ratio 18.0 Glucose 137 H Calcium 9.6 Total Bilirubin 0.5 AST 40 ALT 26 Alkaline Phosphatase 105 Ammonia < 9 L Total Protein 8.2 Albumin 4.5 Globulin 3.7 Albumin/Globulin Ratio 1.2 Prolactin 7.5 Urine Color Yellow Urine Appearance Clear Urine pH 7.0 Ur Specific [place] 1.015 Urine Protein Trace H Urine Glucose (UA) Negative Urine Ketones Negative Urine Occult Blood Negative Urine Nitrate Negative Urine Bilirubin Negative Urine Urobilinogen 0.2 Ur Leukocyte Esterase 1+ H Urine RBC 5-10/hpf H Urine WBC 5-10/hpf H Ur Squamous Epith Cells 1-5 /hpf Urine Bacteria Moderate (10-30) H Ur Culture Indicated? Specimen cultured Vol Urine Centrifuged 10ml (spun) U Opiates 300ng/mL cut Negative Ur Oxycodone Screen Negative Urine Methadone Screen Negative Ur Barbiturates Screen Negative U Tricyclic Antidepress Negative Ur Phencyclidine Scrn Negative Ur Amphetamines Screen Negative U Methamphetamines Scrn Negative Ur MDMA Scrn (Ecstasy) Negative U Benzodiazepines Scrn Negative Urine Cocaine Screen Negative U Marijuana (THC) Screen Negative Urine Specific [place] Ethyl Alcohol < 10 Ur Creatinine SARS-CoV-2 (PCR) 04/04/24 04/04/24 15:00 15:05 WBC RBC Hgb Hct MCV MCH MCHC RDW Plt Count Neut % (Auto) Lymph % (Auto) [place] % (Auto) Eos % (Auto) Baso % (Auto) Neut # (Auto) Lymph # (Auto) [place] # (Auto) Eos # (Auto) Baso # (Auto) PT INR APTT Sodium Potassium Chloride Carbon Dioxide BUN Creatinine Estimated GFR BUN/Creatinine Ratio Glucose Calcium Total Bilirubin AST ALT Alkaline Phosphatase Ammonia Total Protein Albumin Globulin Albumin/Globulin Ratio Prolactin Urine Color Urine Appearance Urine pH Normal Ur Specific [place] Urine Protein Urine Glucose (UA) Urine Ketones Urine Occult Blood Urine Nitrate Urine Bilirubin Urine Urobilinogen Ur Leukocyte Esterase Urine RBC Urine WBC Ur Squamous Epith Cells Urine Bacteria Ur Culture Indicated? Vol Urine Centrifuged U Opiates 300ng/mL cut Ur Oxycodone Screen Urine Methadone Screen Ur Barbiturates Screen U Tricyclic Antidepress Ur Phencyclidine Scrn Ur Amphetamines Screen U Methamphetamines Scrn Ur MDMA Scrn (Ecstasy) U Benzodiazepines Scrn Urine Cocaine Screen U Marijuana (THC) Screen Urine Specific [place] Normal Ethyl Alcohol Ur Creatinine Normal SARS-CoV-2 (PCR) Negative Assessment & Plan Assessment and plan (1) UTI (urinary tract infection): Status: Acute (2) Acute metabolic encephalopathy: Status: Acute (3) Epilepsy: Status: Acute (4) HLD (hyperlipidemia): Status: Acute (5) BPH with obstruction/lower urinary tract symptoms: Status: Acute (6) Gout: Status: Acute Assessment & Plan narrative: Recurrent UTI / Metabolic encephalopathy - Cefepime - w/o evidence of stroke or seizure BPH with LUTS - Flomax, Finasteride, urology follow up Epilepsy - Keppra HLD - statin Gout - allopurinol DVT prophylaxis - Lovenox Time-Based Coding :: [TOTAL MINUTES] spent with patient and on the chart (including review of chart, obtaining history, exam, reviewing outside data, placing orders, documenting exam and treatment plan, and counseling patient) on [DATE].
[2024-04-05] VITALS (11 sets, daily range): BP systolic 142–159; BP diastolic 63–71; PULSE 66–77; RESP 14–20; TEMP 36.1–36.6; O2SAT 94–100; BMI 19.7
[2024-04-05] MEDS: CEFEPIME 2 GM in SODIUM CHLORIDE 0.9% 100 ML IV ×3 (03:01→18:18)
[2024-04-05 05:19] LABS: Add Manual Diff / Slide Review NO; Basophils Absolute Auto 100 /uL (0-100); Basophils Percent Auto 0.5 % (0-2); Eosinophils Absolute Auto 500 /uL (0-450); Eosinophils Percent Auto 4.9 % (2-4); Hematocrit 33.8 % (41-53); Hemoglobin 11.5 g/dL (13.5-17.5); Lymphocytes Absolute Auto 2800 /uL (1100-4500); Lymphocytes Percent Auto 28.6 % (25-40); Mean Corpuscular Hemoglobin 32.5 PG (26-34); Mean Corpuscular Volume 95.6 fL (80-100); Monocytes Absolute Auto 800 /uL (0-900); Monocytes Percent Auto 7.9 % (3-14); Neutrophils Absolute Auto 5600 /uL (1500-7000); Neutrophils Percent Auto 58.1 % (50-75); Platelet Count 181 X10^3/uL (150-400); Red Blood Cell Count 3.53 X10^6/uL (4.5-5.9); Red Cell Distribution Width 14.3 % (11.6-14.8); White Blood Cell Count 9.7 X10^3/uL (4.5-11.0)
[2024-04-05 05:37] LABS: Alanine Aminotransferase 19 IU/L (<50); Albumin 3.9 g/dL (3.5-5.0); Albumin Globulin Ratio 1.2 (1.0-2.8); Alkaline Phosphatase 104 U/L (38-126); Aspartate Aminotransferase 26 IU/L (17-59); BUN Creatinine Ratio 20.6 (6-22); Bilirubin Total 0.4 mg/dL (0.2-1.3); Blood Urea Nitrogen 21 mg/dL (9-20); Calcium 9.5 mg/dL (8.4-10.2); Carbon Dioxide 31 mmol/L (22-32); Chloride 102 mmol/L (98-107); Estimated Glomerular Filt Rate > 60 mL/min (>60); Globulin 3.2 g/dL (1.7-4.1); Glucose 114 mg/dL (80-110); HEMOLYSIS < 15 (0-50); Magnesium 1.8 mg/dL (1.6-2.3); Potassium 3.9 mmol/L (3.4-5.1); Sodium 137 mmol/L (137-145); Total Protein 7.1 g/dL (6.3-8.2)
--- NOTE | 2024-04-05 07:37 | PM.PN.1 ---
Subjective Subjective Interval history: Summary: 73 y/o with PMH of BPH with LUTS, on Flomax and Finasteride and with Ontiveros until earlier today when he had it removed in urology clinic, sent to ED for confusion. Initially suspected for stroke that was ruled out. Diagnosed with recurrent UTI and metabolic encephalopathy. Not septic. Last UC grew pseudomonas resistant to fluoroquinolones and most recent abx prescribed by urology was Cipro. Admitted on Cefepime. S: He was doing well. His confusion has improved. He and it was relationship with his urologist in [place] yesterday and has a it was Ontiveros catheter be taken out. This is placed 2 months ago for recurrent UTI and retention of about 1 cup. He has a history of a UroLift in 2015 4 BPH. He was appointments with [facility] on April 10, and lives on [place]. Exam Vital Signs (past 8 hours): - 04/05/24 01:00 04/05/24 02:00 04/05/24 05:00 Temperature 97 F L 97.6 F Pulse Rate 77 66 Respiratory Rate 18 18 Blood Pressure 142/63 H 148/69 H Pulse Oximetry 96 96 96 Oxygen Delivery Method Room Air Oxygen Flow Rate 0 0 Oxygen Delivery Method Room Air Oxygen Flow Rate 0 Narrative Exam Narrative: NAD, alert and oriented. Fluent speech. Lungs are clear, normal rate and effort. Heart is regular, no murmur gallop or rub. Abdomen is soft, non distended. Extremities are free of edema. Objective ECG Impression: Sinus rhythm with premature atrial complexes Imaging Multiple studies:: Radiologist's impression: MRI brain: Periventricular and subcortical T2 and FLAIR hyperintensity, nonspecific, but most likely due to chronic microvascular ischemia and age-related factors. No evidence of acute or chronic cortical infarct. Head and neck CTA: o significant intracranial arterial abnormality is seen. Mild bilateral, less than 50% internal carotid artery stenosis. Brain CT: No acute intracranial pathology. Comment: Findings were discussed with Dr. Chacon on 04/04/2024 at 1454 hours Labs 04/05/24 04:39 04/05/24 04:39 Labs: Laboratory Results - last 24 hr 04/04/24 04/04/24 04/04/24 14:30 14:36 15:00 WBC 11.8 H RBC 3.80 L Hgb 12.1 L Hct 36.5 L MCV 96.2 MCH 31.8 MCHC 33.1 RDW 14.5 Plt Count 216 Neut % (Auto) 65.2 Lymph % (Auto) 25.4 [place] % (Auto) 6.1 Eos % (Auto) 3.0 Baso % (Auto) 0.3 Neut # (Auto) 7700 H Lymph # (Auto) 3000 [place] # (Auto) 700 Eos # (Auto) 400 Baso # (Auto) 0 PT 11.0 INR 1.0 APTT 37 H Sodium 139 Potassium 4.7 Chloride 100 Carbon Dioxide 31 BUN 20 Creatinine 1.11 Estimated GFR > 60 BUN/Creatinine Ratio 18.0 Glucose 137 H Calcium 9.6 Magnesium Total Bilirubin 0.5 AST 40 ALT 26 Alkaline Phosphatase 105 Ammonia < 9 L Total Protein 8.2 Albumin 4.5 Globulin 3.7 Albumin/Globulin Ratio 1.2 Prolactin 7.5 Urine Color Yellow Urine Appearance Clear Urine pH 7.0 Ur Specific [place] 1.015 Urine Protein Trace H Urine Glucose (UA) Negative Urine Ketones Negative Urine Occult Blood Negative Urine Nitrate Negative Urine Bilirubin Negative Urine Urobilinogen 0.2 Ur Leukocyte Esterase 1+ H Urine RBC 5-10/hpf H Urine WBC 5-10/hpf H Ur Squamous Epith Cells 1-5 /hpf Urine Bacteria Moderate (10-30) H Ur Culture Indicated? Specimen cultured Vol Urine Centrifuged 10ml (spun) U Opiates 300ng/mL cut Negative Ur Oxycodone Screen Negative Urine Methadone Screen Negative Ur Barbiturates Screen Negative U Tricyclic Antidepress Negative Ur Phencyclidine Scrn Negative Ur Amphetamines Screen Negative U Methamphetamines Scrn Negative Ur MDMA Scrn (Ecstasy) Negative U Benzodiazepines Scrn Negative Urine Cocaine Screen Negative U Marijuana (THC) Screen Negative Urine Specific [place] Ethyl Alcohol < 10 Ur Creatinine SARS-CoV-2 (PCR) 04/04/24 04/04/24 04/05/24 15:00 15:05 04:39 WBC 9.7 RBC 3.53 L Hgb 11.5 L Hct 33.8 L MCV 95.6 MCH 32.5 MCHC 34.0 RDW 14.3 Plt Count 181 Neut % (Auto) 58.1 Lymph % (Auto) 28.6 [place] % (Auto) 7.9 Eos % (Auto) 4.9 H Baso % (Auto) 0.5 Neut # (Auto) 5600 Lymph # (Auto) 2800 [place] # (Auto) 800 Eos # (Auto) 500 H Baso # (Auto) 100 PT INR APTT Sodium 137 Potassium 3.9 Chloride 102 Carbon Dioxide 31 BUN 21 H Creatinine 1.02 Estimated GFR > 60 BUN/Creatinine Ratio 20.6 Glucose 114 H Calcium 9.5 Magnesium 1.8 Total Bilirubin 0.4 AST 26 ALT 19 Alkaline Phosphatase 104 Ammonia Total Protein 7.1 Albumin 3.9 Globulin 3.2 Albumin/Globulin Ratio 1.2 Prolactin Urine Color Urine Appearance Urine pH Normal Ur Specific [place] Urine Protein Urine Glucose (UA) Urine Ketones Urine Occult Blood Urine Nitrate Urine Bilirubin Urine Urobilinogen Ur Leukocyte Esterase Urine RBC Urine WBC Ur Squamous Epith Cells Urine Bacteria Ur Culture Indicated? Vol Urine Centrifuged U Opiates 300ng/mL cut Ur Oxycodone Screen Urine Methadone Screen Ur Barbiturates Screen U Tricyclic Antidepress Ur Phencyclidine Scrn Ur Amphetamines Screen U Methamphetamines Scrn Ur MDMA Scrn (Ecstasy) U Benzodiazepines Scrn Urine Cocaine Screen U Marijuana (THC) Screen Urine Specific [place] Normal Ethyl Alcohol Ur Creatinine Normal SARS-CoV-2 (PCR) Negative PFSH Family History Family/Other Hypertension Heart disease Father Hypertension Heart disease Mother Dementia Family/Other Loud snoring Hypertension Heart disease Social History household members: spouse Smoking Status: Former smoker Assessment & Plan Assessment & Plan narrative: 1. Recurrent UTI, POA. - Cefepime and follow culture. - w/o evidence of stroke or seizure 2. Septic encephalopathy, POA. Resolved. 3. BPH with urine retention, POA. Stable. - Flomax, Finasteride, urology follow up 4. Epilepsy, POA. Stable. - Keppra 5. HLD, POA. Stable. - statin 6. Gout, POA. Stable. - allopurinol PLAN: -cont antibiotics. -monitor mental status. Improved. -follow culture. STEVE: 04/06 on PO antibiotics if cultures back. He can go without ontiveros if no severe retention. DVT prophylaxis - Lovenox Time-Based Coding :: [TOTAL MINUTES] spent with patient and on the chart (including review of chart, obtaining history, exam, reviewing outside data, placing orders, documenting exam and treatment plan, and counseling patient) on [DATE].
[2024-04-05] MEDS: METFORMIN HCL 500 MG TABLET 1000 MG PO (08:44)
[2024-04-05] MEDS: FINASTERIDE 5 MG TABLET PO (08:44)
[2024-04-05] MEDS: levETIRAcetam 250 MG TABLET PO ×2 (08:44→20:19)
[2024-04-05] MEDS: ENOXAPARIN 40 MG/0.4 ML SYRINGE SUBCUT (08:45)
[2024-04-05] MEDS: allopurinoL 100 MG TABLET 300 MG PO (08:45)
[2024-04-05] MEDS: MULTIVITAMIN 1 TABLET 1 TAB PO (08:45)
[2024-04-05] MEDS: ATORVASTATIN 20 MG TABLET 10 MG PO (08:45)
[2024-04-05] MEDS: ASPIRIN EC 81 MG TABLET PO (08:45)
[2024-04-05] MEDS: TAMSULOSIN 0.4 MG CAPSULE PO (08:45)
[2024-04-05] MEDS: SODIUM CHLORIDE 0.9% FLUSH 10 ML IV ×2 (08:46→20:19)
[2024-04-05] MEDS: polyethylene glycoL 3350 17 GM POWD.PACK PO (10:54)
--- NOTE | 2024-04-05 15:08 | CM.DANOTE ---
DCP Assessment Note: Pt is a 73yo male, resident of [place], is admitted for recurrent UTI with Metabolic encephalopathy. Pt lives in a house with his , Petrona. Pt's Primary Care Provider is Dr. Titi Duffy and insurance is Medicare and [employer]. Reviewed chart and team rounds for pt's medical status and initial discharge needs. Per hospitalist, pt to obtain IV abx while admitted. Follow up with [facility] scheduled for 04/10/2024. DCP met w/patient at bedside; introduced self and role. Present in the room is pt's spouse who also served as a historian. Patient was found in bed, alert and oriented, cooperative with assessment. Pt confirmed living situation and good support in . Pt expressed preference in discharging home when cleared. Pt and declined need for referral for home health or other supports in community. Pt discussed possibly ferry priority boarding at time of discharge, DCP encouraged her to attempt to obtain a ferry reservation and/or CM team will follow to coordinate ferry priority boarding pass. Plan: Anticipating discharge home with spouse to transport when medically cleared. CM team will follow closely for coordination of discharge plans. Brandee Parker [facility] Discharge Planning/Care Management CM Discharge Assessment Start: 04/05/24 15:06 Freq: Status: Active Protocol: Document 04/05/24 15:06 MW (Rec: 04/05/24 15:08 MW [id number]) Discharge Planning Assessment Assigned Pulling Unit Floorhand DWAINE Irvin DPOA/Assigned Designee Name Petrona, Spouse Contact Information [phone] Advance Directives? No History Provided By Patient,Significant Other, Medical Record Has Patient been admitted in last 30 No days? Prior Living Arrangements House Comment [place] [facility]hold Members spouse Type of transporation used prior to Relies on Others admit Independent with ADL's Yes: with standby assist ( spouse) Is patient alert and oriented? Yes Caregiver for Another No DME Already Rented / Owned Wheelchair,FWW / Walker Barriers to Discharge No Discharge Plan Home Referrals Initiated None needed Whiteboard Updated in Patient Room with Yes name and ext. # of Pulling Unit Floorhand Comment [phone] Review Status In Process Please Provide Date Initial DC 04/05/24 Assessment Was Performed Next Review Type Continued Stay Review
[2024-04-05] MEDS: SENNOSIDES 8.6 MG TABLET PO (20:19)
[2024-04-06] VITALS (9 sets, daily range): BP systolic 128–162; BP diastolic 60–74; PULSE 65–75; RESP 14–17; TEMP 35.9–36.4; O2SAT 93–99
[2024-04-06] MEDS: CEFEPIME 2 GM in SODIUM CHLORIDE 0.9% 100 ML IV ×2 (02:15→11:48)
[2024-04-06 05:20] LABS: Add Manual Diff / Slide Review NO; Basophils Absolute Auto 100 /uL (0-100); Basophils Percent Auto 0.9 % (0-2); Eosinophils Absolute Auto 500 /uL (0-450); Eosinophils Percent Auto 5.2 % (2-4); Hematocrit 34.8 % (41-53); Hemoglobin 11.9 g/dL (13.5-17.5); Lymphocytes Absolute Auto 3300 /uL (1100-4500); Mean Corpuscular HGB Conc 34.3 % (30-36); Mean Corpuscular Hemoglobin 32.7 PG (26-34); Mean Corpuscular Volume 95.5 fL (80-100); Monocytes Absolute Auto 800 /uL (0-900); Neutrophils Absolute Auto 5600 /uL (1500-7000); Neutrophils Percent Auto 53.9 % (50-75); Platelet Count 176 X10^3/uL (150-400); Red Blood Cell Count 3.64 X10^6/uL (4.5-5.9); Red Cell Distribution Width 14.7 % (11.6-14.8); White Blood Cell Count 10.4 X10^3/uL (4.5-11.0)
[2024-04-06 05:33] LABS: Alanine Aminotransferase 22 IU/L (<50); Albumin 4.4 g/dL (3.5-5.0); Albumin Globulin Ratio 1.2 (1.0-2.8); Alkaline Phosphatase 97 U/L (38-126); Aspartate Aminotransferase 32 IU/L (17-59); BUN Creatinine Ratio 22.8 (6-22); Bilirubin Total 0.7 mg/dL (0.2-1.3); Blood Urea Nitrogen 26 mg/dL (9-20); Calcium 9.5 mg/dL (8.4-10.2); Carbon Dioxide 31 mmol/L (22-32); Chloride 100 mmol/L (98-107); Estimated Glomerular Filt Rate > 60 mL/min (>60); Globulin 3.6 g/dL (1.7-4.1); Glucose 114 mg/dL (80-110); HEMOLYSIS 38 (0-50); Magnesium 1.8 mg/dL (1.6-2.3); Potassium 4.3 mmol/L (3.4-5.1); Sodium 138 mmol/L (137-145)
[2024-04-06] MEDS: ENOXAPARIN 40 MG/0.4 ML SYRINGE SUBCUT (08:49)
[2024-04-06] MEDS: polyethylene glycoL 3350 17 GM POWD.PACK PO (08:49)
[2024-04-06] MEDS: allopurinoL 100 MG TABLET 300 MG PO (08:50)
[2024-04-06] MEDS: ASPIRIN EC 81 MG TABLET PO (08:51)
[2024-04-06] MEDS: FINASTERIDE 5 MG TABLET PO (08:51)
[2024-04-06] MEDS: ATORVASTATIN 20 MG TABLET 10 MG PO (08:51)
[2024-04-06] MEDS: TAMSULOSIN 0.4 MG CAPSULE PO (08:51)
[2024-04-06] MEDS: levETIRAcetam 250 MG TABLET PO (08:51)
[2024-04-06] MEDS: MULTIVITAMIN 1 TABLET 1 TAB PO (08:51)
[2024-04-06] MEDS: METFORMIN HCL 500 MG TABLET 1000 MG PO (08:51)
[2024-04-06] MEDS: SODIUM CHLORIDE 0.9% FLUSH 10 ML IV (08:52)
--- NOTE | 2024-04-06 14:10 | PM.DS.1 ---
History of Present Illness History of Present Illness Date Patient Seen: 04/06/24 Time Patient Seen: 12:30 Date of Onset of Symptoms: 04/04/24 Chief complaint: PER might be having a stroke unsure Narrative: 73 y/o with PMH of BPH with LUTS, on Flomax and Finasteride and with [facility] until earlier today when he had it removed in urology clinic, sent to ED for confusion. Initially suspected for stroke that was ruled out. Diagnosed with recurrent UTI and metabolic encephalopathy. Not septic. Last UC grew pseudomonas resistant to fluoroquinolones and most recent abx prescribed by urology was Cipro. Admitted on Cefepime. Discharge Providers Provider Date of admission: 04/04/24 19:03 Discharge Date: 04/06/24 Primary care physician: Titi Duffy MD Discharge provider: Cesar Arias MD Summary Hospital Course Discharge Diagnosis: 1. Recurrent urinary tract infection due to Gram-negative bacilli 2. Septic encephalopathy due to 1. 3. BPH with urinary retention 4. Seizure disorder 5. Hyperlipidemia 6. Gout Hospital Course: 73-year-old man under the primary care of Dr. Titi Duffy MD was admitted, treated with broad-spectrum antibiotics, continued on his usual medications otherwise, and improved dramatically during hospitalization. He was very motivated return home. He and his felt that he was back to baseline. They understand the antibiotic choice is based on his response therapy, transitioned to oral formulation, and further outpatient follow-up of urine cultures will be necessary to assure correct antibiosis. No other issues arose. Status at Discharge Cognitive/behavioral status at discharge: oriented Functional status at discharge: independent ambulation Overall status at discharge: patient is back to baseline Time Spent with Patient Time spent: Less than 30 minutes Exam Vital Signs (past 8 hours): - 04/06/24 08:00 04/06/24 09:10 04/06/24 12:00 Temperature 96.6 F L 97.0 F L Pulse Rate 75 71 Respiratory Rate 15 15 Blood Pressure 162/65 H 128/60 Pulse Oximetry 99 94 99 Oxygen Delivery Method Room Air Oxygen Flow Rate 0 0 0 04/06/24 13:05 04/06/24 13:21 Temperature 97.5 F L Pulse Rate 73 Respiratory Rate 17 Blood Pressure 143/63 H Pulse Oximetry 95 98 Oxygen Delivery Method Room Air Oxygen Flow Rate 0 0 Oxygen Delivery Method Room Air Oxygen Flow Rate 0 Narrative Exam Narrative: NAD, alert and oriented. Fluent speech. Lungs are clear, normal rate and effort. Heart is regular, no murmur gallop or rub. Abdomen is soft, non distended. Extremities are free of edema. Objective Imaging *: Radiologist's impression: 1. Brain CT 04/04/2024: No acute intracranial pathology. 2. Head/neck CTA 04/04/2024: No significant intracranial arterial abnormality is seen. Mild bilateral, less than 50% internal carotid artery stenosis. 3. Brain MRI 04/04/2024: Periventricular and subcortical T2 and FLAIR hyperintensity, nonspecific, but most likely due to chronic microvascular ischemia and age-related factors. No evidence of acute or chronic cortical infarct. Labs 04/06/24 05:03 04/06/24 05:03 Labs: Laboratory Results - last 24 hr 04/06/24 05:03 WBC 10.4 RBC 3.64 L Hgb 11.9 L Hct 34.8 L MCV 95.5 MCH 32.7 MCHC 34.3 RDW 14.7 Plt Count 176 Neut % (Auto) 53.9 Lymph % (Auto) 32.0 [place] % (Auto) 8.0 Eos % (Auto) 5.2 H Baso % (Auto) 0.9 Neut # (Auto) 5600 Lymph # (Auto) 3300 [place] # (Auto) 800 Eos # (Auto) 500 H Baso # (Auto) 100 Sodium 138 Potassium 4.3 Chloride 100 Carbon Dioxide 31 BUN 26 H Creatinine 1.14 Estimated GFR > 60 BUN/Creatinine Ratio 22.8 H Glucose 114 H Calcium 9.5 Magnesium 1.8 Total Bilirubin 0.7 AST 32 ALT 22 Alkaline Phosphatase 97 Total Protein 8.0 Albumin 4.4 Globulin 3.6 Albumin/Globulin Ratio 1.2 PFSH Family History Family/Other Hypertension Heart disease Father Hypertension Heart disease Mother Dementia Family/Other Loud snoring Hypertension Heart disease Social History household members: spouse Smoking Status: Former smoker Discharge Plan Discharge Plan Patient Disposition: Home Provider Discharge Comment: Followup with Dr. Duffy 1 week, urology as planned Discharge orders & Medications Prescriptions: New cefpodoxime 200 mg tablet 200 mg PO BID Qty: 14 0RF Rx Instructions: must administer with a meal/food Continued atorvastatin 10 mg Tablet 10 mg PO DAILY Rx Instructions: pm B Complex-Vitamin B12 500 mcg tablet 500 mcg PO 2XD Patient Comments: not taken pm dose yet today Rx Instructions: 500mcg twice daily, levetiracetam 250 mg Tablet 250 mg PO 2XD Rx Instructions: pm dose not taken yet today magnesium oxide 250 mg magnesium Tablet 250 mg PO BID allopurinol 300 mg tablet 300 mg PO DAILY finasteride 5 mg tablet 5 mg PO DAILY Rx Instructions: PM metformin 1,000 mg tablet 1,000 mg PO DAILY Rx Instructions: has not taken pm dose tamsulosin 0.4 mg capsule 0.4 mg PO DAILY Rx Instructions: pm multivitamin Capsule 1 cap PO DAILY aspirin [Adult Low Dose Aspirin] 81 mg tablet,delayed release (DR/EC) 81 mg PO DAILY Follow up/Referrals: Titi Duffy MD [Primary Care Provider] - Visit Report/Discharge Packet Instructions: DI for Heart Failure, DI for Urinary Tract Infection (UTI), DI for Encephalopathy, DI for Metabolic Syndrome Stand Alone Forms: Congestive Heart Failure, Patient Portal/API, Stroke Signs & Symptoms Discharge Data Primary Care Provider: Titi Duffy Quality MIPS - Admit I confirm the patient?s Advance Care Plan is present, Code status is documented, Surrogate decision maker is in patient?s record [If Yes, STOP here]: Yes MIPS - Meds 'Current medications' to include all prescriptions, [id number] products, herbals, cannabis/cannabidiol products, and vitamin/mineral/dietary (nutritional) supplements. I have utilized all available resources to obtain, update, or review the patient?s current medications. [If Yes, STOP here]: Yes MIPS - DC The patient has a history of heart transplant or Left Ventricular Assist Device (LVAD). If yes, STOP here.: No The patient has current or prior documentation of left ventricular ejection fraction (LVEF) less than or equal to 40%, or moderate or severely depressed left ventricular systolic function.: No A. The patient was prescribed or already taking an Angiotensin-Converting Enzyme (NATALIE) Inhibitor, or Angiotensin Receptor Bonifacio (ARB).: No B. The patient was prescribed or already taking a beta-bonifacio. [If Yes to Both A & B, STOP here]: No Patient not prescribed/taking NATALIE or ARB, no reason given.: No Patient not prescribed/taking beta-bonifacio, no reason given.: No IH PROFEE Charge Codes Discharge inpatient/observation: [id number]
--- NOTE | 2024-04-06 15:11 | CM.DPC ---
DCP Discharge Home Per MD, pt is medically stable to d/c home today with outpt f/u with his PCP and no identified barriers to discharge. Per RN, pt's transport arrived and discharge instructions provided and no concerns noted. Plan: Patient discharged back to [place] via spouse POV and picked up prescriptions at [facility] prior to [place] the ferry and outpt f/u and no further SW needs at this time. DWAINE Bennett
== END 2024-04-06 13:50 | disposition home or self-care (01) | DRG 698 ==
LOC: ED 18:49 → AC 19:04
PROVIDERS: Admitting Provider Internal Medicine; Emergency Provider Emergency Medicine; PCP Student in an Organized Health Care Education/Training Program; Referring Provider Emergency Medicine; Visit Provider Internal Medicine
DX: T83.511A Infection and inflammatory reaction due to indwelling urethral catheter, initial encounter (principal); G93.41 Metabolic encephalopathy; R47.01 Aphasia; N39.0 Urinary tract infection, site not specified; G40.909 Epilepsy, unspecified, not intractable, without status epilepticus; E78.5 Hyperlipidemia, unspecified; N40.1 Benign prostatic hyperplasia with lower urinary tract symptoms; M10.9 Gout, unspecified; R33.8 Other retention of urine; B96.5 Pseudomonas (aeruginosa) (mallei) (pseudomallei) as the cause of diseases classified elsewhere; Y73.1 Therapeutic (nonsurgical) and rehabilitative gastroenterology and urology devices associated with adverse incidents; Z87.440 Personal history of urinary (tract) infections; Z87.891 Personal history of nicotine dependence
CPT/HCPCS: 36415; 51798; 70450; 70496; 70498; 70551; 80053; 80305; 80320; 81001; 82140; 82962; 83735; 84146; 85025; 85610; 85730; 87040; 87077; 87086; 87186; 87635; 93005; 93010; 96365; 96367; 99285; J0692; J0696; J1650; J1953; Q9967